=== PATIENT | male | born 1980 | race Caucasian/White ===

== ENCOUNTER 2017-11-17 12:51 | Day surgery (SDC) | payer BC ==
[2017-11-16 11:11] VITALS: BMI 27.7
[2017-11-17] MEDS ORDERED: Oxymetazoline HCl 0.05% ( 15 ML ) ONE ×2 (13:22→13:25)
[2017-11-17] MEDS ORDERED: Lidocaine 1% w/Epinephrine 1:200K 30 ML VIAL ONE (13:22)
[2017-11-17] MEDS ORDERED: Bacitracin Zinc Ointment 30 gm TUBE ONE (13:22)
[2017-11-17] MEDS ORDERED: Fentanyl 250 MCG/5 ML VIAL ONE ×2 (13:26→15:11)
[2017-11-17] MEDS ORDERED: Midazolam HCl 2 mg/2 ml Vial ONE (13:33)
[2017-11-17] MEDS ORDERED: Sodium Chloride 0.9% 10 ML ONE (13:37)
[2017-11-17] MEDS ORDERED: Ondansetron HCl/PF 4 MG/2 ML Vial ONE (14:55)
[2017-11-17] MEDS ORDERED: Labetalol 100 MG/20 ML MDV ONE (14:55)
[2017-11-17] MEDS ORDERED: Succinylcholine Chloride 20 MG/ML 10 ml SYRINGE FS ONE (14:55)
[2017-11-17] MEDS ORDERED: Glycopyrrolate 0.2 MG/ML 5 ML SYRINGE ONE (14:55)
[2017-11-17] MEDS ORDERED: Dexamethasone 20 MG/5 ML VIAL ONE (14:55)
[2017-11-17] MEDS ORDERED: Lidocaine 1% PF 5 ML VIAL ONE (14:55)
[2017-11-17] MEDS ORDERED: Propofol 200 MG/20 ML VIAL ONE (14:55)
--- NOTE | 2017-11-17 18:15 | OP ---
PREOPERATIVE DIAGNOSES: Deviated septum, hypertrophic inferior turbinates, chronic sinusitis, recurr ent sinusitis, facial pain. PROCEDURES PERFORMED: 1. Bilateral nasal endoscopy with maxillary antrostomy. 2. Bilateral nasal endoscopy with total ethmoidectomy. 3. Bilateral nasal endoscopy with frontal sinusotomy. 4. Bilateral nasal endoscopy with sphenoidotomy. 5. Bilateral nasal endoscopy with submucosal resection of inferior turbinates and septoplasty. PROCEDURE IN DETAIL: After consent was obtained, the patient was identified, brought to the operatin g room, and placed on the operating room table in the supine position. Consent was obtained, notifyi ng the patient of the possibility of additional infections, bleeding, brain injury, and eye/orbital i njury. The patient was placed on the operating room table, and general endotracheal anesthesia and intravenous access was obtained. The patient was then positioned, prepped and draped for endoscopic sinus surgery. Nasal preparation included trimming nasal vestibular hairs and spraying in topical Af rin. We then placed Afrin topical solution on nasal pledgets and strategically located them intranas ally. The perinasal mucosa was injected with 1% lidocaine with 1:100,000 epinephrine in the submucop erichondrial plane of the septum, lateral nasal wall, and anterior to the uncinate. The patient was then prepped and draped in a sterile fashion and positioned for endoscopic sinus surgery. With the 0-degree endoscope, the patient underwent systematic nasal endoscopy. There were no suspici ous internasal masses or lesions identified. We then focused our attention to the osteomeatal comple x region under the middle turbinate. Maxillary antrostomy: The uncinate was then identified and the extent of the uncinate was appreciate d by out-fracturing the uncinate with the ball-tip probe. We then used the sickle blade to disarticu late the uncinate from the lateral nasal wall. This was then removed with straight biting and upbiti ng punches with the remaining shrouds of mucosa and bony septum removed with the micro-debrider. The natural os of the maxillary sinus was then identified and enlarged with the maxillary punches and ba ck biting forceps. Total ethmoidectomy: The anterior face of the ethmoid bulla was entered and with the micro-debrider, dissection continued posteriorly to the ground lamella. The limits of dissection included the inser tion of the middle turbinate, medial orbital wall, and base of skull. We similarly identified the fr ontal recess and removed shrouds of bone and debris in that region to obtain patency into the agger n asi region and frontal recess. We then entered the ground lamella and its anteroinferior aspect and proceeded posteriorly, opening the posterior ethmoid air-cell system. Again, the limits of dissectio n included the base of skull and medial orbital wall. Frontal sinusotomy: The anterior face of the ethmoid bulla was entered and with the micro-debrider, dissection continued posteriorly to the ground lamella. The limits of dissection included the insert ion of the middle turbinate, medial orbital wall, and base of skull. We similarly identified the fro ntal recess and removed shrouds of bone and debris in that region to obtain patency into the agger na si region and frontal recess. We then entered the ground lamella and its anteroinferior aspect and p roceeded posteriorly, opening the posterior ethmoid air-cell system. Again, the limits of dissection included the base of skull and medial orbital wall. Sphenoidotomy: The anterior face of the sphenoid was identified and entered in its extreme anteroinf erior aspect. A sphenoid punch was then used to enlarge the sphenoidotomy and no injury to the optic nerve or internal carotid artery occurred. Submucosal resection of inferior turbinates: The inferior turbinates were visualized under endoscopi c visualization and outfractured with the elevator. The inferolateral edge of the inferior turbinate was then cauterized along its length with the suction cautery without difficulty. Septoplasty: After local anesthesia was infiltrated into the submucoperichondrial plane, a standard Yazan incision was made with a #15 blade down to the level of the septal cartilage. The caudal franco vator was used to elevate the mucoperichondrium from the underlying cartilage. We then proceeded bey ond the bony cartilaginous junction and elevated the bony periosteum as well. Great attention was pa id to the spur to prevent rent formation in the septal flap. A transcartilaginous incision was then m alana, while preserving an adequate dorsal and caudal cartilaginous strut for tip support. The deforme d cartilage was removed and disarticulated from the bony cartilaginous junction and maxillary crest. This was placed in saline and would later be crushed and returned to the mucoperichondrial envelope. We then elevated the contralateral periosteum from the bony cartilaginous region and removed the de formed portions of the bone and bony spurs. The cartilage was then crushed and placed back into the mucoperichondrial envelope and the mucosa was re-approximated with a quilting stitch composed of rapi dly absorbent gut suture. The [place] incision was also closed with interrupted gut suture. At the completion of the case, Garner splints were placed and suture secured to the caudal septum. At this point, we then turned our attention to the contralateral side and proceeded with endoscopic s inus surgery. At the completion of the case, Rice keel splints were placed in the ethmoid cavities after the ethmoi dectomy. There were no complications. The patient tolerated the procedure well and was discharged t o the recovery room in stable condition prior to return to the preoperative Day Stay with [facility]. Prescriptions for pain medication and antibiotics were provided. The patient received intramuscular Depo-Medrol during the case.
== END 2017-11-17 17:15 | disposition home or self-care (01) ==
LOC: SDC 12:51
PROVIDERS: ATTEND Specialist
PROC: 09BS8ZZ Excision of Right Frontal Sinus, Via Natural or Artificial Opening Endoscopic (ICD-10-PCS; principal; 2017-11-17)
PROC: 09TL8ZZ Resection of Nasal Turbinate, Via Natural or Artificial Opening Endoscopic (ICD-10-PCS; principal; 2017-11-17)
PROC: 09TU8ZZ Resection of Right Ethmoid Sinus, Via Natural or Artificial Opening Endoscopic (ICD-10-PCS; principal; 2017-11-17)
PROC: 09CX8ZZ Extirpation of Matter from Left Sphenoid Sinus, Via Natural or Artificial Opening Endoscopic (ICD-10-PCS; principal; 2017-11-17)
PROC: 09CW8ZZ Extirpation of Matter from Right Sphenoid Sinus, Via Natural or Artificial Opening Endoscopic (ICD-10-PCS; principal; 2017-11-17)
PROC: 09TV8ZZ Resection of Left Ethmoid Sinus, Via Natural or Artificial Opening Endoscopic (ICD-10-PCS; principal; 2017-11-17)
PROC: 099R8ZZ Drainage of Left Maxillary Sinus, Via Natural or Artificial Opening Endoscopic (ICD-10-PCS; principal; 2017-11-17)
PROC: 099Q8ZZ Drainage of Right Maxillary Sinus, Via Natural or Artificial Opening Endoscopic (ICD-10-PCS; principal; 2017-11-17)
PROC: 09BT8ZZ Excision of Left Frontal Sinus, Via Natural or Artificial Opening Endoscopic (ICD-10-PCS; principal; 2017-11-17)
PROC: 09RM47Z Replacement of Nasal Septum with Autologous Tissue Substitute, Percutaneous Endoscopic Approach (ICD-10-PCS; principal; 2017-11-17)
DX: J32.9 Chronic sinusitis, unspecified (principal); J34.2 Deviated nasal septum; J34.3 Hypertrophy of nasal turbinates; J30.1 Allergic rhinitis due to pollen; J30.81 Allergic rhinitis due to animal (cat) (dog) hair and dander; J30.89 Other allergic rhinitis; F17.220 Nicotine dependence, chewing tobacco, uncomplicated; Z79.899 Other long term (current) drug therapy
CPT/HCPCS: 96374; A4216; J0131; J1100; J2001; J2250; J2405; J2704; J3010